=== PATIENT | female | born 2000 | race Caucasian/White ===

== ENCOUNTER 2020-05-23 10:37 | Emergency (ER) | payer OTHER, SELFPAY ==
--- NOTE | ~2020-05-23 | XR_ITS ---
EXAMINATION: XR chest 1V portable DATE: 05/23/2020 12:06 INDICATION: Cough TECHNIQUE: frontal view of the chest was obtained. COMPARISON: None FINDINGS: The lungs are clear with no focal airspace opacities, pulmonary edema, pleural effusion or pneumothor ax. The cardiomediastinal silhouette is normal. Visualized bones and soft tissues are unremarkable. IMPRESSION: 1. Normal chest radiograph. Reviewed, dictated and finalized at location A. [employer] IMPRESSION: 1. Normal chest radiograph.
[2020-05-23 10:52] VITALS: BP 125/79; PULSE 116; RESP 18; TEMP 36.4; O2SAT 100
--- NOTE | 2020-05-23 11:05 | PC.NURSE ---
pt states she had negative rapid covid test and has 2 regular covid tests pending. states has history of her uvula being swollen. usually receives steroids for this. used to get strep often as a child until she had tonsils removed.
[2020-05-23] MEDS: ACETAMINOPHEN 500 MG TABLET 1000 MG PO (11:46)
[2020-05-23] MEDS: DEXAMETHASONE SOD PHOS INJ 4 MG/ML VIAL 10 MG IM (11:46)
--- NOTE | 2020-05-23 12:09 | ED.GENADULT ---
HPI - General Adult General Chief complaint: Upper Respiratory Infection <Jace Hooks PA-C - Last Filed: 05/23/20 12:15> Stated complaint: swollen tonsils, cold sx <Jace Hooks PA-C - Last Filed: 05/23/20 12:15> Time Seen by Provider: 05/23/20 11:11 <Jace Hooks PA-C - Last Filed: 05/23/20 12:15> Source: patient <Jace Hooks PA-C - Last Filed: 05/23/20 12:15> Mode of arrival: ambulatory <Jace Hooks PA-C - Last Filed: 05/23/20 12:15> Limitations: no limitations <Jace Hooks PA-C - Last Filed: 05/23/20 12:15> History of Present Illness HPI narrative: Patient is a 19-year-old female who presents with several days duration of sore throat and fever that worsened last night has been taking [id number]-[id number]-[id number] medications with minimal improvement notes history of tonsillitis and strep pharyngitis patient on arrival does not appear distressed or uncomfortable. Patient denies vomiting diarrhea or other URI symptoms <Jace Hooks PA-C - Last Filed: 05/23/20 12:15> Related Data Home medications: Home Medications Medication Instructions Recorded Confirmed norethindrone-e.estradiol-iron tablet 05/23/20 [Aurovela Fe 1.5/30 (28)] <Jace Hooks PA-C - Last Filed: 05/23/20 12:15> Allergies/adverse reactions: Allergies Allergy/AdvReac Type Severity Reaction Status Date / Time No Known Allergies Allergy Verified 05/23/20 11:08 <Jace Hooks PA-C - Last Filed: 05/23/20 12:15> Review of Systems Review of Systems: All systems reviewed & are unremarkable except as noted in HPI and below <Jace Hooks PA-C - Last Filed: 05/23/20 12:15> [facility] Social History Social History: Social History Gender identity (if verbalized by the patient): Female <LENY Steven Last Filed: 05/23/20 12:15> Exam Narrative: Exam Narrative: GENERAL: Well-appearing, well-nourished, and in no acute distress. HEAD: Normocephalic, atraumatic. EYES: PERRLA and EOMI. ENT: Nares clear, no rhinorrhea or epistaxis. Mucous membranes moist. Oropharynx with erythema and without exudate or hypertrophy uvula midline no trismus or drooling NECK: Supple. Anterior adenopathy noted CHEST: Clear to auscultation. No respiratory distress. No wheezes rales or rhonchi HEART: Regular rate and rhythm. No murmur heard. EXTREMITIES: Normal range of motion. No edema. SKIN: Warm, dry, no rash. NEURO: No focal deficits. Alert and oriented x3. PSYCH: Normal mood and affect. <LENY Steven Last Filed: 05/23/20 12:15> Course Course Emergency Course: Patient in the room aware of case findings treatment plan diagnosis will be referred to ENT patient had 3 - Covid test will not be tested for Covid negative strep test today felt appropriate for outpatient reevaluation given her findings we will be treating her for presumptive strep pharyngitis <LENY Steven Last Filed: 05/23/20 12:15> Vital Signs Vital signs: Vital Signs Temperature 36.4 C 05/23/20 10:52 Pulse Rate 116 H 05/23/20 10:52 Respiratory Rate 18 05/23/20 10:52 Blood Pressure 125/79 05/23/20 10:52 Pulse Oximetry 100 05/23/20 10:52 Temperature 36.4 C 05/23/20 10:52 Pulse Rate 116 H 05/23/20 10:52 Respiratory Rate 18 05/23/20 10:52 Blood Pressure 125/79 05/23/20 10:52 Pulse Oximetry 100 05/23/20 10:52 <LENY Steven Last Filed: 05/23/20 12:15> Vital Signs Temperature 36.4 C 05/23/20 10:52 Pulse Rate 116 H 05/23/20 10:52 Respiratory Rate 18 05/23/20 10:52 Blood Pressure 125/79 05/23/20 10:52 Pulse Oximetry 100 05/23/20 10:52 Temperature 36.4 C 05/23/20 10:52 Pulse Rate 116 H 05/23/20 10:52 Respiratory Rate 18 05/23/20 10:52 Blood Pressure 125/79 05/23/20 10:52 Pulse Oximetry 100 05/23/20 10:52 <Clemencia Aguilar
[2020-05-23 12:43] LABS: Monoscreen Negative (Negative); Negative Monotest Control Negative (Negative); Positive Monotest Control Positive (Positive)
== END 2020-05-23 12:30 | disposition home or self-care (01) ==
PROVIDERS: Emergency Medicine Emergency Medical Services; Emergency Provider Emergency Medicine
DX: J02.9 Acute pharyngitis, unspecified (principal)
CPT/HCPCS: 36415; 71045; 86308; 87081; 87880; 96372; 99283; A9270; J1100

== ENCOUNTER 2022-12-01 08:09 | Emergency (ER) | payer OTHER, SELFPAY ==
[2022-12-01 08:18] VITALS: BP 114/85; PULSE 85; RESP 16; TEMP 36.3; O2SAT 100
--- NOTE | 2022-12-01 08:25 | ED.FEMALEGU ---
HPI - Female Genitourinary General Chief complaint: Abdominal Pain Stated complaint: Sharp pain in right ovary, pressure, bloated Source: patient and RN notes reviewed Mode of arrival: ambulatory Limitations: no limitations History of Present Illness HPI Narrative: Patient is a 22-year-old female who presents to the [facility] with complaints pelvic pain and pressure. Patient states that she has noticed this pelvic pain for the last couple of months but only during intercourse. States that she feels as if the pain is in her right ovary. Patient states that the pain became sharp last night and lasted about 15 minutes. She reports bladder fullness at this time. Also reports some intermittent dysuria and urinary frequency. Denies hematuria. Denies vaginal bleeding or discharge. Denies recent fevers. Denies abdominal pain, nausea, vomiting, diarrhea. Related Data Home Medications Medication Instructions Recorded Confirmed norethindrone 1.5 mg-ethinyl 1 tablet PO DAILY 05/23/20 12/01/22 estradiol 30 mcg(21)/iron 75 mg(7) tablet (Aurovela Fe 1.5/30 (28)) Allergies Allergy/AdvReac Type Severity Reaction Status Date / Time No Known Allergies Allergy Verified 12/01/22 08:27 Review of Systems Review of Systems: CONSTITUTIONAL: Denies fever, chills, or sweats. EYES: Denies visual changes, redness, or discharge. ENT: Denies otalgia and sore throat CARDIOVASCULAR: Denies chest pain, palpitations, or edema. RESPIRATORY: Denies cough or dyspnea. GASTROINTESTINAL: Denies abdominal pain, nausea, vomiting, or diarrhea. GENITOURINARY: Reports pelvic pain and pressure. Reports dysuria and urinary frequency. Denies hematuria. SKIN: Denies rash or itching. MUSCULOSKELETAL: Denies back pain, joint pain, or myalgia. NEUROLOGIC: Denies headache, numbness, or weakness. Pertinent positives per HPI. PMFSH Social History Social History Gender identity (if verbalized by the patient): Female Comments At the time of my signature, I reviewed and agree with the nursing past medical, surgical, social, and family history. There is no relevant family history pertinent to the patient complaint. Exam Narrative: GENERAL: This is a well-nourished, well-developed patient, in no apparent distress. HEAD: normocephalic, atraumatic. EYES: PERRL. Sclera clear/white. Vision is grossly intact. EARS: External ears normal, auditory canals clear and without drainage, TMs normal without perforation. Hearing grossly intact. NOSE: External nose normal with no obvious nasal discharge, nares without redness, no rhinorrhea. THROAT: Mucous membranes moist, posterior pharynx clear. NECK: Neck supple, non-tender without lymphadenopathy, masses or thyromegaly. CARDIOVASCULAR: Regular rate and rhythm without murmurs, gallops, or rubs. RESPIRATORY: Clear to auscultation. Breath sounds equal bilaterally. No wheezes, rales, or rhonchi. GASTROINTESTINAL: Abdomen soft, non-tender, nondistended. Bowel sounds are active. No hepato-splenomegaly, or palpable masses. No guarding. SKIN: warm, intact with no suspicious lesions or rash, good texture and turgor. NEURO: awake, alert, and oriented to person, place and time. There were no obvious focal neurologic abnormalities. EXTREMITIES: No clubbing, cyanosis, or edema. No joint tenderness, effusion, or edema noted. BACK: Nontender without deformity or crepitance. No flank tenderness. Course Course Level of Care: Express Care Visit Vital Signs Vital signs: Vital Signs Temperature 97.3 F L 12/01/22 08:18 Pulse Rate 85 12/01/22 08:18 Respiratory Rate 16 12/01/22 08:18 Blood Pressure 114/85 12/01/22 08:18 Pulse Oximetry 100 12/01/22 08:18 Temperature 97.3 F L 12/01/22 08:18 Pulse Rate 85 12/01/22 08:18 Respiratory Rate 16 12/01/22 08:18 Blood Pressure 114/85 12/01/22 08:18 Pulse Oximetry 100 12/01/22 08:18 Oxygen Delive
== END 2022-12-01 08:50 | disposition home or self-care (01) ==
PROVIDERS: Emergency Provider Nurse Practitioner
DX: R10.2 Pelvic and perineal pain (principal); K21.9 Gastro-esophageal reflux disease without esophagitis
CPT/HCPCS: 81003; 81025; 99212; G0463